=== PATIENT | female | born 1930 | race African-American/Black ===

== ENCOUNTER → 2018-05-24 10:17 | Outpatient (CLI) | payer MEDICARE, MEDICAID ==
[2013-09-19 11:01] VITALS: BMI 31.1
[~2018-05-24 10:17] MED LIST: ALEVE220 MG PO; B-12 DOTS500 MCG PO; BENICAR40 MG PO; MOBIC7.5 MG PO; NORVASC5 MG PO; TRAVATAN Z2.5 ML EACH EYE; VOLTAREN100 GM TP
== END | disposition home or self-care (01) ==
LOC: D.LABREF 10:17
DX: M25.572 Pain in left ankle and joints of left foot (principal)

== ENCOUNTER → 2018-06-07 10:49 | Outpatient (CLI) | payer MEDICARE, MEDICAID ==
[2013-09-19 11:01] VITALS: BMI 31.1
[2018-06-07 17:47] LABS: EOSINOPHILS 7.5 % (0-7); HEMATOCRIT 36.9 % (36.0-48.0); HEMOGLOBIN 11.8 g/dL (12-16); IMMATURE GRANULOCYTES 0.3 % (0-5); LYMPHOCYTES 27.2 % (15-50); MCV 84.4 fL (80.0-100.0); MEAN PLATELET VOLUME 11.1 fL (7.4-10.4); MONOCYTES 10.1 % (2-11); NEUTROPHILS 53.9 % (40-80); PLATELET COUNT 305 10x3/uL (130-400); RBC 4.37 10x6/uL (4.00-5.40); RDW 15.7 % (11.5-14.5); WBC 7.7 10x3/uL (4.8-10.8)
[2018-06-07 18:42] LABS: ERYTHROCYTE SEDIMENTATION RATE 22 mm/hr (0-42)
== END | disposition home or self-care (01) ==
LOC: D.US 10:49
PROVIDERS: Nurse Practitioner Family
DX: R60.0 Localized edema (principal)

== ENCOUNTER → 2018-06-07 17:41 | Outpatient (CLI) | payer MEDICARE, MEDICAID ==
[2013-09-19 11:01] VITALS: BMI 31.1
== END | disposition home or self-care (01) ==
LOC: D.LABREF 17:41
DX: M25.572 Pain in left ankle and joints of left foot (principal)

== ENCOUNTER → 2018-06-17 07:52 | Outpatient (CLI) | payer MEDICARE, MEDICAID ==
[2013-09-19 11:01] VITALS: BMI 31.1
== END | disposition home or self-care (01) ==
LOC: D.MRI 07:52
DX: M25.572 Pain in left ankle and joints of left foot (principal)

== ENCOUNTER → 2018-08-08 08:38 | Outpatient (CLI) | payer MEDICARE, MEDICAID ==
[2013-09-19 11:01] VITALS: BMI 31.1
[~2018-08-08 08:38] MED LIST changes: +PLAVIX75 MG PO
== END | disposition home or self-care (01) ==
LOC: D.CT 08:30
DX: I70.293 Other atherosclerosis of native arteries of extremities, bilateral legs (principal)

== ENCOUNTER 2018-08-23 11:11 | Outpatient (CLI) | payer MEDICARE, MEDICAID ==
[~2018-08-23] VITALS: Ht 157.5 cm; Wt 67.7 kg
--- NOTE | ~2018-08-23 | HEMODYNAMI ---
PATIENT:HECTOR HAMPTON MEDICAL RECORD: [id number] : 34 LOCATION:[facility] ADMISSION DATE: 08/23/18 Generatedon:08/23/201815:49 Patient name: HECTOR HAMPTON Patient #: [id number] SSN: : 1930 Date of study: 08/23/2018 Page: Of Hemodynamic Procedure Report Patient Data Patient Demographics Procedure consent was obtained First Name: HECTOR Gender: Female Last Name: MEMO : 1930 [facility] Initial: DAYAMI Age: 87 year(s) Patient #: [id number] Race: Black Additional ID: [id number] Contact details [address]: [address] [place] [address] State: [place] City: [place] Zip code: [address] Past Medical History Allergies Allergen Reaction Date Comments Reported Sulfa drugs 08/23/2018 Admission Admission Data Admission Date: 08/23/2018 Admission Time: 11:11 Height (in.): 62 BSA: 1.69 (m2) Height (cm.): 157.48 BMI: 27.25 (kg/m2) Weight (lbs.): 149 Weight (kg.): 67.59 Procedure Procedure Types Cath Procedure Peripheral Cath Diagnostic Procedure Grain Thresher Peripheral Procedures Abd/Extremity Extremities Left Lower Ext Arterio Procedure Description Procedure Date Procedure Date: 08/23/2018 Procedure Start Time: 13:45 Procedure Staff Name Function Taz Juarez MD Performing Physician Patricia Kulkarni RT Movie Operator Elsa Gregory RN Nurse Jenniffer Rodriguez RN Nurse Sae Andrade RT Scrub Procedure Data Cath Procedure Fluoroscopy Diagnostic fluoroscopy Total fluoroscopy Time: time: 17.1 min 17.1 min Diagnostic fluoroscopy Total fluoroscopy dose: 433 dose: 433 mGy mGy Contrast Material Contrast Material Type Amount (ml) Isovue 300 80 Entry Location Entry Primary Successful Side Size Upsize Upsize Entry Closure Succes sful Closure Location (Fr) 1 (Fr) 2 (Fr) Remarks Device Remarks Femoral Right Mynx artery Aeronautical Test Engineer 6Fr/7Fr Diagnostic catheters Device Type Used For End Catheter Placement DIAGNOSTIC IMT 5Fr Catheter ([id number]) Procedure Medications Medication Administration Route Dosage Heparin Flush Bag added to field 3 bags (1000units/500ml NS) Lidocaine 1% added to field 20 Versed I.V. 1 mg Fentanyl I.V. 50 mcg Versed I.V. 1 mg Heparin Bolus 3000 units Nitroglycerin IC/IA I.C. 250 mcg Heparin Bolus I.V. 1000 units Fentanyl I.V. 50 mcg Nitroglycerin IC/IA 300 mcg Fentanyl I.V. 50 mcg Hemodynamics Rest BSA: 1.69 (m2) O2 Consumption: Estimated: 149.93 (ml/min) O2 Consumption indexed : Estimated:88.72 (ml/min/m) Heart Rate: 70 (bpm) Snapshots Pre Cath Intra NCS Post Cath Vital Signs Time Heart Resp SPO2 etCO2 NIBP (mmHg) Rhythm Pain Sedation Rate (ipm) (%) (mmHg) Status Level (bpm) 13:28:46 68 23 100 30.7 Measuring NSR 0 (11) 10(A) , No pain 13:29:12 69 23 100 22.4 208/111(176) NSR 0 (11) 10(A) , No pain 13:33:41 70 23 100 29.9 201/108(162) NSR 0 (11) 10(A) , No pain 13:38:11 65 17 100 34.4 202/102(171) NSR 0 (11) 10(A) , No pain 13:42:33 66 20 100 34.4 198/98(166) NSR 0 (11) 10(A) , No pain 13:46:51 67 20 100 23.2 199/103(160) NSR 0 (11) 8(A) , No pain 13:51:05 65 17 100 26.9 180/100(155) NSR 0 (11) 8(A) , No pain 13:55:15 63 18 100 29.2 191/98(155) NSR 0 (11) 8(A) , No pain 13:59:27 57 14 100 26.9 173/87(149) NSR 0 (11) 8(A) , No pain 14:03:35 60 28 99 0 122/77(98) NSR 0 (11) 8(A) , No pain 14:08:16 58 26 99 16.4 160/82(126) SB 0 (11) 8(A) , No pain 14:12:19 54 11 100 0 163/88(139) SB 0 (11) 8(A) , No pain 14:17:06 62 12 100 28.4 174/86(146) NSR 0 (11) 8(A) , No pain 14:21:14 59 13 100 17.9 149/85(125) SB 0 (11) 8(A) , No pain 14:25:57 57 14 99 13.4 163/93(132) SB 0 (11) 8(A) , No pain 14:30:00 53 13 99 30.7 164/91(134) SB 0 (11) 8(A) , No pain 14:34:04 52 13 99 32.2 172/86(150) SB 0 (11) 8(A) , No pain 14:38:53 53 13 100 31.4 180/91(154) SB 0 (11) 8(A) , No pain 14:43:01 54 14 100 31.4 182/89(155) SB 0 (11) 8(A) , No pain 14:47:09 52 13 100 31.4 179/93(153) SB 0 (11) 8(A) , No pain 14:51:14 51 14 100 29.1 185/91(159) SB 0 (11) 8(A) , No pain 14:55:22 51 14 100 30.6 185/97(156) SB 0 (11) 8(A) , No pain 14:59:28 52 15 100 30.6 193/99(170) SB 0 (11) 8(A) , No pain 15:03:38 52 13 100 28.4 158/82(126) SB 0 (11) 8(A) , No pain 15:07:40 51 11 99 29.1 170/91(112) SB 0 (11) 8(A) , No pain 15:12:18 50 16 100 30.6 176/91(123) SB 0 (11) 8(A) , No pain 15:16:24 50 12 100 31.4 184/101(171) SB 0 (11) 8(A) , No pain 15:20:32 53 12 100 26.1 183/93(148) SB 0 (11) 8(A) , No pain 15:24:40 52 14 96 32.9 194/101(171) SB 0 (11) 8(A) , No pain 15:29:22 57 15 98 40.4 195/95(153) SB 0 (11) 8(A) , No pain 15:33:30 57 16 97 36.6 194/97(161) SB 0 (11) 8(A) , No pain 15:38:17 32.2 189/100(147) SB 0 (11) 8(A) , No pain 15:42:43 31.4 181/96(146) SB 0 (11) 8(A) , No pain 15:47:07 31.4 181/96(138) SB 0 (11) 8(A) , No pain 15:49:14 34.4 180/92(155) SB 0 (11) 8(A) , No pain Medications Time Medication Route Dose Verified Delivered Reason No emilia Effectiveness by by 13:46:00 Heparin Flush added 3 bags Taz Mcghee used for Bag to Ann Juarez procedure (1000units/500ml field MD MAO NS) 13:46:12 Lidocaine 1% added 20ml vial Taz Mcghee used for to Ann Juarez procedure field MD MAO 13:46:23 Versed I.V. 1 mg Taz Hunter for sedation Mostly Ann Gregory RN sleeping @ 14:52:42 13:46:32 Fentanyl I.V. 50 mcg Taz Hunter for sedation Mostly Ann Gregory RN sleeping @ 14:52:39 13:55:01 Versed I.V. 1 mg Taz Hunter for sedation Dozing Ann Gregory RN intermittently MD @ 14:52:47 13:55:13 Fentanyl I.V. 50 mcg Taz Hunter for sedation Ann Gregory RN, MD 14:15:54 Heparin Bolus 3000units Taz Abad for Ann Rodriguez RN anticoagulation 14:20:03 Nitroglycerin I.C. 250 mcg Taz Mcghee used for IC/IA Ann Juarez procedure MD MAO 14:59:29 Heparin Bolus I.V. 1000 Taz Abad for units Ann Rodriguez RN anticoagulation 15:00:39 Fentanyl I.V. 50 mcg Taz Abad for sedation Ann Rodriguez RN, MD 15:01:53 Nitroglycerin 300 mcg Taz Mcghee used for IC/IA Ann Juarez procedure MD MAO Procedure Log Time Note :30 Time tracking: Regular hours (M-F 7:00 - 5:00) 13:09:46 Plan of Care:Hemodynamics will remain stable., Cardiac rhythm will remain stable., Comfort level will be maintained., Respiratory function will remain adequate., Patient/ family verbilizes understanding of procedure., Procedure tolerated without complication., Recovers from procedure without complications.. 13:09:54 Patient received from Outpatients to IR Alert and oriented. Tansferred to table in Supine position. 13:09:58 Signed procedure consent form obtained from patient. 13:10:05 H&P Date Dictated: 08/23/2018 Within 30 days and on chart.. 13:10:08 Pre-procedure instructions explained to patient. 13:10:09 Pre-op teaching completed and patient verbalized understanding. 13:10:10 Family in waiting room. 13:10:13 Patient NPO since Midnight. 13:10:39 Patient allergic to Sulfa drugs 13:10:43 Is the patient allergic to Iodine/contrast media? No. 13:23:46 - 13:23:49 Patient diabetic? No. 13:24:43 ----Pre-sedation anethsthesia assessment.---- 13:25:06 Previous problem with sedation/anesthesia? No ? 13:25:10 Snore? No 13:25:13 Sleep apnea? No 13:25:15 Deviated septum? No 13:25:17 Opens mouth fully? Yes 13:25:21 Sticks out tongue? Yes 13:25:29 Airway obstruction? No ? 13:25:44 Dentures? Yes ? 13:25:52 Pre procedure: right dorsailis pedis pulse Doppler 13::56 Pre procedure: left dorsailis pedis pulse Doppler 13:26:00 Pre procedure: right posterior tibial pulse Doppler 13:26:06 Pre procedure: left posterior tibial pulse Doppler 13:26:21 IV patent on arrival in right forearm with D5/.45%NaCl at [facility]. 13::48 Right groin area was prepped with chlora-prep and draped in sterile fashion 13:26:51 - 13::56 ECG and BP/O2 sat monitors applied to patient. 13::57 Vital chart was started 13:: Baseline sample Acquired. ::06 Full Disclosure recording started 13::07 - 13:37:49 Physician arrived 13:45:01 --------ALL STOP TIME OUT------ 13:45:02 Final Timeout: patient, procedure, and site verified with staff and physician. All members of the team are in agreement. 13:45:15 Procedure started. 13:45:35 Local anesthetic to right femoral artery with Lidocaine 1% by Taz Juarez MD.INITIAL ACCESS ONLY 13:46:00 Heparin Flush Bag (1000units/500ml NS) 3 bags added to field was administered by Taz Juarez MD; used for procedure; :46:12 Lidocaine 1% 20ml vial added to field was administered by Taz gillette MD; used for procedure; :46:23 Versed 1 mg I.V. was administered by Elsa Gregory RN; for sedation; :46:32 Fentanyl 50 mcg I.V. was administered by Elsa Gregory RN; for sedation ; :55:01 Versed 1 mg I.V. was administered by Elsa Gregory RN; for sedation; :55:13 Fentanyl 50 mcg I.V. was administered by Elsa Gregory RN; for sedation ; 14:01:49 ROADRUNNER .035 260 glide wire ([id number]) opened to sterile field. 14:01:52 A DIAGNOSTIC IMT 5Fr Catheter ([id number]) was advanced over the wire an d used for . 14:03:20 Arterial access obtained using ultrasound guidance. 14:06:24 CHOICE PT Extra Support J 300cm guide wire ([id number]) opened to steril e field. 14:06:55 Angiography was performed. 14:08:06 CXI SUPPORT .035 135 CM STR catheter ([id number]) opened to sterile field. 14:08:07 BENTSON 145cm wire (T88535) opened to sterile field. 14:08:08 SHEATH 6FR Destination (RSR01) opened to sterile field. 14:08:09 Micropuncture VSI 4FR kit opened to sterile field. 14:08:09 SHEATH 5FR [place] (QED885) opened to sterile field. 14:08:10 RAPP 260 wire (O00350) opened to sterile field. 14:08:15 Use device set IR Diagnostic 14:08:16 Tegaderm 4 x 4 (1626W) opened to sterile field. 14:08:17 Sterile Angiographic Pack opened to sterile field. 14:08:18 Bag Decanter (2002S) opened to sterile field. 14:08:19 ACIST Manifold (32710) opened to sterile field. 14:08:19 ACIST Hand Control (38499) opened to sterile field. 14:08:20 ACIST Syringe (06556) opened to sterile field. 14:14:24 Patient Weight : 149 lbs 14:14:29 Patient Height : 62 inches 14:15:54 Heparin Bolus 3000units was administered by Jenniffer Rodriguez RN; for anticoagulation; 14:20:03 Nitroglycerin IC/IA 250 mcg I.C. was administered by Taz Juarez MD; used for procedure; 14:21:16 INFLATOR BasixTOUCH (FQ7944) opened to sterile field. 14:21:49 Inflate balloon Inflation number: 1 A CHOCOLATE 2.5 x 120 x 150 balloon ([id number]) was prepped and advanced across the Undefined1, then inflated. 14:24:00 CXI SUPPORT .018 150CM STR catheter ([id number]) opened to sterile field. 14:27:32 Inflate balloon Inflation number: 2 A [place] Plus 2 x 120 x 130 Balloo n ([id number]) was prepped and advanced across the Undefined1, then inflated. 14:52:39 Effectiveness of Fentanyl delivered @ 13:46:32 is: Mostly sleeping 14:52:42 Effectiveness of Versed delivered @ 13:46:23 is: Mostly sleeping 14:52:42 COPILOT Valve Control (6385689) opened to sterile field. 14:52:47 Effectiveness of Versed delivered @ 13:55:01 is: Dozing intermittently 14:59:29 Heparin Bolus 1000 units I.V. was administered by Jenniffer Rodriguez RN; for anticoagulation; 15:00:39 Fentanyl 50 mcg I.V. was administered by Jenniffer Rodriguez RN; for sedation; 15:00:55 Inflate balloon Inflation number: 3 A Evercross 3 x 6 x 135 Balloon ([id number]) was prepped and advanced across the Undefined1, then inflated. 15:01:53 Nitroglycerin IC/IA 300 mcg was administered by Taz Juarez MD; used for procedure; 15:15:49 SHEATH 6FR [place] (FZR749) opened to sterile field. 15:17:35 A sheath was inserted into the Right Femoral artery 15:17:35 Sheath removed intact; hemostasis achieved with Mynx Aeronautical Test Engineer 6Fr/7Fr to th e Right Femoral artery. 15:17:48 MYNX HEEL BUILDER 6FR/7FR (FV4645) opened to sterile field. 15:17:59 Procedure ended.(Physican Out) 15:18:14 Fluoroscopy time 17.10 minutes. 15:18:20 Fluoroscopy dose: 433 mGy 15:18:20 Flurop Dose total: 433 15:18:24 Contrast amount:Isovue 300 80ml. 15:18:27 Procedure and supply charges have been captured, reviewed, submitted an d are correct. 15:23:24 Report given to Outpatients. 15:23:36 Post Procedure Pulses reassessed and unchanged 15:49:52 Vital chart was stopped Intervention Summary Intervention Notes Time ActionType Lesion and Equipment Used Action# Pressure Duration Attributes 14:21:49 Inflate Undefined1 CHOCOLATE 2.5 x 1 0 00:00 balloon 120 x 150 balloon ([id number]) 14:27:32 Inflate Undefined1 [place] Plus 2 x 2 0 00:00 balloon 120 x 130 Balloon ([id number]) 15:00:55 Inflate Undefined1 Evercross 3 x 6 x 3 0 00:00 balloon 135 Balloon ([id number]) Device Usage Item Name Manufacture Quantity Catalog Number Hospital Part Current Minimal Lot# / Charge Number Stock Stock Serial# Code ROADRUNNER .035 Cook Medical 1 [id number] 343502 299152 934494 5 [id number] 260 glide wire (G57529) DIAGNOSTIC IMT [place] 1 [id number] 306950 661341 55689 5 [id number] 5Fr Catheter Scientific ([id number]) CHOICE PT Extra [place] 1 [id number] 064879 142449 101740 5 Support J 300cm Scientific guide wire ([id number]) CXI SUPPORT .035 Kontron 1 M13292 166518 196657 157496 5 [id number] 135 CM STR catheter (D97360) BENTSON 145cm Cook [facility] 1 U87676 657667 017925 5 wire (K14373) SHEATH 6FR Terumo 1 RSR01 034205 02864 727723 5 Destination (RSR01) Micropuncture VSI VSI VASCULAR 1 7266V 365700 017437 5 4FR kit SOLUTIONS SHEATH 5FR Terumo 1 FSO765 996730 789896 246080 40 Polk (ZEW238) RAPP 260 wire Cook [facility] 1 V35865 761639 06234 514474 5 [id number] (R97863) Tegaderm 4 x 4 3M 1 1626W 587616 157650 075713 5 (1626W) Sterile Cardinal 1 [id number] 505955 378219 5 Angiographic Pack Health Bag Decanter Microtek 1 2001S 849029 67894 163929 5 () Medical Inc. ACIST Manifold Acist 1 70254 118439 551069 679201 5 (91221) Medical Systems Inc ACIST Hand Acist 1 88892 895951 876777 155045 5 Control (50191) Medical Systems Inc ACIST Syringe Acist 1 76336 477569 318662 626203 20 (70526) Medical Systems Inc INFLATOR Merit 1 QL6707 716271 652516 939007 5 BasixTOUCH Medical (PX2073) CHOCOLATE 2.5 x Medtronic 1 [id number] 513556 146587 312875 5 [id number] 120 x 150 balloon O [id number] ([id number]) TW [id number] CXI SUPPORT .018 Cook Medical 1 D62863 103740 047738 088374 5 [id number] 150CM STR catheter (H79676) [place] Plus 2 x Medtronic 1 [id number] 623890 233330 358659 5 [id number] 120 x 130 Balloon ([id number]) COPILOT Valve Weir 1 3423156 788675 631872 946264 5 Control (2242514) Vascular Evercross 3 x 6 x Medtronic 1 [id number] 136830 023642 056477 5 [id number] 135 Balloon ([id number]) SHEATH 6FR Terumo 1 IUG731 734056 484468 908891 40 [place] (PIW460) MYNX HEEL BUILDER 6FR/7FR Access 1 CU2615 051966 437864 5 (CS3185) Closure Signature Audit [place] Stage Time Signature Unsigned Intra-Procedure 08/23/2018 Patricia Kulkarni 3:49:47 PM RT(R) [facility] [address] [facility] [place] [address]
[~2018-08-23 11:11] MED LIST changes: -PLAVIX75 MG PO
[2018-08-23 11:35] LABS: BASOPHILS 0.7 % (0-2); EOSINOPHILS 10.1 % (0-7); HEMATOCRIT 36.5 % (36.0-48.0); HEMOGLOBIN 11.8 g/dL (12-16); IMMATURE GRANULOCYTES 0.1 % (0-5); MCH 26.9 pg (26.0-34.0); MCHC 32.3 g/dL (31.0-37.0); MCV 83.1 fL (80.0-100.0); MEAN PLATELET VOLUME 10.1 fL (7.4-10.4); MONOCYTES 7.5 % (2-11); NEUTROPHILS 53.6 % (40-80); PLATELET COUNT 283 10x3/uL (130-400); RBC 4.39 10x6/uL (4.00-5.40); RDW 15.6 % (11.5-14.5); WBC 6.9 10x3/uL (4.8-10.8)
[2018-08-23 11:44] LABS: ANION GAP 13.3 mmol/L (8-16); CALCIUM 10.1 mg/dL (8.5-10.1); CREATININE - SERUM 1.1 mg/dL (0.6-1.3); POTASSIUM - SERUM 3.3 mmol/L (3.5-5.1)
[2018-08-23 11:48] LABS: APTT 28.7 SECONDS (22.8-39.4); INR 1.09 (0.85-1.17); PROTIME 13.7 SECONDS (11.6-15.0)
[2018-08-23 12:47] VITALS: BP 170/56; Ht 157.5 cm; Wt 67.7 kg
[2018-08-23 18:46] LABS: EOS BF 6 %; MACROPHAGES BF 4 %; NEUT - BF 66 %
[2018-08-23 19:38] LABS: PROTEIN - BODY FLUID 7.8 G/DL
[2018-08-23 20:26] VITALS: BP 158/85
[2018-08-24 01:01] VITALS: BP 120/70
[2018-08-24 04:48] VITALS: BP 123/64
[2018-08-24 08:23] VITALS: BP 140/89
[2018-08-24] MEDS ORDERED: PLAVIX75 MG PO (10:48)
== END 2018-08-24 11:57 | disposition home or self-care (01) ==
LOC: D.SP 11:11 → D.US 13:00 → D.SP 13:00 → D.M2 18:37 → D.SP 08-24 11:57
PROVIDERS: Radiology Diagnostic Radiology
DX: M25.561 Pain in right knee (principal); M25.461 Effusion, right knee; I70.239 Atherosclerosis of native arteries of right leg with ulceration of unspecified site; Z01.812 Encounter for preprocedural laboratory examination

== ENCOUNTER 2021-01-24 09:56 | Emergency (ER) | payer MEDICARE, MEDICAID ==
[~2021-01-24] VITALS: Ht 157.5 cm; Wt 70.9 kg
[~2021-01-24 09:56] MED LIST changes: +PLAVIX75 MG PO
[2021-01-24 10:01] VITALS: Ht 157.5 cm; Wt 70.9 kg
[2021-01-24 10:25] LABS: BASOPHILS 0.2 % (0-2); EOSINOPHILS 2.1 % (0-7); HEMATOCRIT 33.4 % (36.0-48.0); HEMOGLOBIN 10.2 g/dL (12-16); IMMATURE GRANULOCYTES 0.4 % (0-5); LYMPHOCYTE ABS# 1.21 10x3/uL (1.18-3.74); LYMPHOCYTES 25.1 % (15-50); MCH 28.6 pg (26.0-34.0); MCHC 30.5 g/dL (31.0-37.0); MCV 93.6 fL (80.0-100.0); MEAN PLATELET VOLUME 11.5 fL (7.4-10.4); MONOCYTES 7.1 % (2-11); NEUTROPHIL ABS# 3.14 10x3/uL (1.56-6.13); NEUTROPHILS 65.1 % (40-80); PLATELET COUNT 242 10x3/uL (130-400); RBC 3.57 10x6/uL (4.00-5.40); RDW 16.7 % (11.5-14.5); WBC 4.8 10x3/uL (4.8-10.8)
[2021-01-24 10:44] LABS: INR 1.14 (0.85-1.17); PROTIME 13.5 SECONDS (11.6-15.0)
[2021-01-24 10:45] LABS: APTT 36.2 SECONDS (22.8-39.4)
[2021-01-24 10:47] LABS: CALC OSMOLALITY 295 mosm/kg (275-300); CALCIUM 9.4 mg/dL (8.5-10.1); CARBON DIOXIDE 31.4 mmol/L (21.0-32.0); CHLORIDE - SERUM 107 mmol/L (98-107); CREATININE - SERUM 1.5 mg/dL (0.6-1.3); GLUCOSE 110 mg/dL (74-106); SODIUM 146 mmol/L (136-145); UREA NITROGEN 24 mg/dL (7-18); eGFR NON AFRICAN AMERICAN 35 mL/min (90-120)
[2021-01-24 11:02] LABS: ALBUMIN 3.4 g/dL (3.4-5.0); ALKALINE PHOSPHATASE 204 U/L (30-120); ALT (SGPT) 29 U/L (10-68); BILIRUBIN - TOTAL 0.26 mg/dL (0.2-1.3); CKMB 3.5 U/L (0.0-3.6); CREATINE KINASE 92 UL (21-215); PROTEIN - SERUM 7.5 g/dL (6.4-8.2); TROPONIN-I < 0.017 ng/mL (0.000-0.060)
[2021-01-24 13:16] VITALS: BP 164/85
== END 2021-01-24 15:23 | disposition home or self-care (01) ==
LOC: D.ER 09:56
PROVIDERS: Emergency Medicine
DX: N64.4 Mastodynia (principal); R07.81 Pleurodynia; D64.9 Anemia, unspecified; N18.9 Chronic kidney disease, unspecified; K80.20 Calculus of gallbladder without cholecystitis without obstruction; I12.9 Hypertensive chronic kidney disease with stage 1 through stage 4 chronic kidney disease, or unspecified chronic kidney disease; R07.89 Other chest pain

== ENCOUNTER 2021-02-03 12:47 | Inpatient (IN) | payer MEDICARE, MEDICAID ==
[~2021-02-03] VITALS: Ht 157.5 cm; Wt 69.5 kg
--- NOTE | 2021-02-03 13:54 | NUR ---
URINE SAMPLE COLLECTED ET SENT TO LAB AT THIS TIME.
[2021-02-03 14:24] LABS: BASOPHILS 0.2 % (0-2); EOSINOPHILS 1.2 % (0-7); HEMATOCRIT 30.5 % (36.0-48.0); HEMOGLOBIN 9.6 g/dL (12-16); IMMATURE GRANULOCYTES 0.4 % (0-5); LYMPHOCYTE ABS# 1.37 10x3/uL (1.18-3.74); MCH 28.2 pg (26.0-34.0); MCHC 31.5 g/dL (31.0-37.0); MCV 89.4 fL (80.0-100.0); MEAN PLATELET VOLUME 11.3 fL (7.4-10.4); MONOCYTES 5.6 % (2-11); NEUTROPHIL ABS# 9.21 10x3/uL (1.56-6.13); NEUTROPHILS 80.6 % (40-80); PLATELET COUNT 246 10x3/uL (130-400); RBC 3.41 10x6/uL (4.00-5.40); RDW 16.6 % (11.5-14.5); WBC 11.4 10x3/uL (4.8-10.8)
[2021-02-03 14:35] LABS: APTT 47.6 SECONDS (22.8-39.4); INR 1.23 (0.85-1.17); PROTIME 14.4 SECONDS (11.6-15.0)
[2021-02-03 14:39] LABS: CALC OSMOLALITY 291 mosm/kg (275-300); CALCIUM 8.6 mg/dL (8.5-10.1); CARBON DIOXIDE 23.6 mmol/L (21.0-32.0); CHLORIDE - SERUM 106 mmol/L (98-107); CREATININE - SERUM 2.3 mg/dL (0.6-1.3); GLUCOSE 106 mg/dL (74-106); POTASSIUM - SERUM 4.6 mmol/L (3.5-5.1); SODIUM 141 mmol/L (136-145); UREA NITROGEN 42 mg/dL (7-18); eGFR NON AFRICAN AMERICAN 21 mL/min (90-120)
[2021-02-03 14:40] LABS: BILIRUBIN NEGATIVE (NEGATIVE); KETONE NEGATIVE (NEGATIVE); NITRITE POSITIVE (NEGATIVE); UROBILINOGEN NORMAL mg/dL (< 2)
[2021-02-03 14:42] LABS: BACTERIA MANY HPF (NONE SEEN); SQUAMOUS EPITHELIAL 0-5 HPF (0-4)
[2021-02-03 14:46] LABS: ALBUMIN 2.6 g/dL (3.4-5.0); ALKALINE PHOSPHATASE 170 U/L (30-120); ALT (SGPT) 19 U/L (10-68); BILIRUBIN - TOTAL 0.24 mg/dL (0.2-1.3); CKMB 3.1 U/L (0.0-3.6); CREATINE KINASE 39 UL (21-215); MAGNESIUM - SERUM 1.7 mg/dL (1.8-2.4); PROTEIN - SERUM 6.9 g/dL (6.4-8.2)
[2021-02-03 14:52] LABS: TROPONIN-I < 0.017 ng/mL (0.000-0.060)
[2021-02-03 18:13] VITALS: BP 97/56; BMI 28.0
--- NOTE | 2021-02-03 19:30 | NUR ---
DR DESOUZA AT BED SIDE TO SEE PT.
[2021-02-03 19:46] LABS: CKMB 2.9 U/L (0.0-3.6); CREATINE KINASE 44 UL (21-215); TROPONIN-I < 0.017 ng/mL (0.000-0.060)
[2021-02-03 19:55] VITALS: Ht 157.5 cm; Wt 69.5 kg
[2021-02-03 20:00] VITALS: BP 126/72
[2021-02-03] MEDS ORDERED: LEVOXYL50 MCG PO (20:05)
[2021-02-03] MEDS ORDERED: FAMVIR500 MG PO (20:06)
[2021-02-03] MEDS ORDERED: REMERON15 MG PO (20:07)
[2021-02-03] MEDS ORDERED: PROTONIX40 MG PO (20:07)
[2021-02-03] MEDS ORDERED: ZYLOPRIM100 MG PO (20:08)
[2021-02-03] MEDS ORDERED: ZOLOFT25 MG PO (20:08)
[2021-02-03] MEDS ORDERED: KLOR-CON M2020 MEQ PO (20:08)
[2021-02-03] MEDS ORDERED: MICARDIS HCT 81 EACH PO (20:09)
[2021-02-03] MEDS ORDERED: COMBIGAN OPHT DR5 ML EACH EYE (20:09)
--- NOTE | 2021-02-04 02:24 | NUR ---
RESTIGN WITH EYES CLOSED, RESPERATIONS EVEN, NO S/S DISTRESS NOTED.
[2021-02-04 02:26] LABS: CKMB 3.1 U/L (0.0-3.6); CREATINE KINASE 45 UL (21-215); TROPONIN-I < 0.017 ng/mL (0.000-0.060)
[2021-02-04 04:00] VITALS: BP 145/84
--- NOTE | 2021-02-04 05:07 | NUR ---
I have reviewed this patient and I concur with the Shift Assessment completed by the Licensed Practical Nurse today this shift.
[2021-02-04 07:27] LABS: CKMB 2.9 U/L (0.0-3.6); CREATINE KINASE 34 UL (21-215)
[2021-02-04 07:30] LABS: TROPONIN-I < 0.017 ng/mL (0.000-0.060)
[2021-02-04 08:07] LABS: ANION GAP 16.2 mmol/L (8-16); CALCIUM 8.9 mg/dL (8.5-10.1); CARBON DIOXIDE 22.6 mmol/L (21.0-32.0); POTASSIUM - SERUM 4.8 mmol/L (3.5-5.1)
[2021-02-04 08:57] VITALS: BP 131/87
[2021-02-04 12:38] VITALS: BP 91/59
[2021-02-04 15:42] VITALS: BP 94/57
--- NOTE | 2021-02-04 19:45 | NUR ---
ASSESSMENT COMPLETE. PT A&O, RESPERATIONS EVEN ON RA. IV TO RIGHT WRIST WITH NS INFUSING AT 75 CC/HR. PT DENIES PAIN OR NEEDS, BED LOW, CL IN REACH.
[2021-02-04 20:00] VITALS: BP 110/83
[2021-02-05 00:06] VITALS: BP 123/81
--- NOTE | 2021-02-05 03:12 | NUR ---
RESTING WITH EYES CLOSED, RESPERATIONS EVEN, NO S/S DISTRESS NOTED.
[2021-02-05 04:00] VITALS: BP 122/79
--- NOTE | 2021-02-05 04:23 | NUR ---
I have reviewed this patient and I concur with the Shift Assessment completed by the Licensed Practical Nurse today this shift.
[2021-02-05 07:26] LABS: BASOPHILS 0.1 % (0-2); EOSINOPHILS 0.8 % (0-7); HEMATOCRIT 29.2 % (36.0-48.0); HEMOGLOBIN 9.2 g/dL (12-16); IMMATURE GRANULOCYTES 0.4 % (0-5); LYMPHOCYTE ABS# 1.53 10x3/uL (1.18-3.74); LYMPHOCYTES 15.1 % (15-50); MCH 28.5 pg (26.0-34.0); MCHC 31.5 g/dL (31.0-37.0); MCV 90.4 fL (80.0-100.0); MEAN PLATELET VOLUME 11.8 fL (7.4-10.4); MONOCYTES 4.4 % (2-11); NEUTROPHIL ABS# 8.01 10x3/uL (1.56-6.13); NEUTROPHILS 79.2 % (40-80); PLATELET COUNT 295 10x3/uL (130-400); RBC 3.23 10x6/uL (4.00-5.40); RDW 16.8 % (11.5-14.5); WBC 10.1 10x3/uL (4.8-10.8)
[2021-02-05 07:40] LABS: ANION GAP 16.2 mmol/L (8-16); CALCIUM 9.1 mg/dL (8.5-10.1); CARBON DIOXIDE 22.6 mmol/L (21.0-32.0); CREATININE - SERUM 1.9 mg/dL (0.6-1.3)
[2021-02-05 07:42] LABS: POTASSIUM - SERUM 3.8 mmol/L (3.5-5.1)
[2021-02-05 08:04] VITALS: BP 124/86
[2021-02-05 11:47] VITALS: BP 119/74
[2021-02-05 20:55] VITALS: BP 146/86
[2021-02-06 04:27] VITALS: BP 116/77
[2021-02-06 06:19] LABS: BASOPHILS 0.2 % (0-2); CALCIUM 8.8 mg/dL (8.5-10.1); CARBON DIOXIDE 24.9 mmol/L (21.0-32.0); CREATININE - SERUM 1.8 mg/dL (0.6-1.3); EOSINOPHILS 4.1 % (0-7); HEMATOCRIT 27.1 % (36.0-48.0); HEMOGLOBIN 8.4 g/dL (12-16); LYMPHOCYTE ABS# 1.32 10x3/uL (1.18-3.74); LYMPHOCYTES 22.3 % (15-50); MCH 27.9 pg (26.0-34.0); MEAN PLATELET VOLUME 11.3 fL (7.4-10.4); MONOCYTES 4.9 % (2-11); NEUTROPHIL ABS# 3.99 10x3/uL (1.56-6.13); NEUTROPHILS 67.5 % (40-80); PLATELET COUNT 262 10x3/uL (130-400); POTASSIUM - SERUM 3.9 mmol/L (3.5-5.1); RBC 3.01 10x6/uL (4.00-5.40); RDW 16.9 % (11.5-14.5)
[2021-02-06 06:21] LABS: WBC 5.9 10x3/uL (4.8-10.8)
[2021-02-06] MEDS ORDERED: LOPRESSOR25 MG PO (07:28)
[2021-02-06] MEDS ORDERED: ELIQUIS2.5 MG PO (07:28)
[2021-02-06] MEDS ORDERED: LEVOFLOXACIN500 MG PO (07:34)
[2021-02-06 09:36] VITALS: BP 149/78
--- NOTE | 2021-02-06 09:47 | MORECARE ---
CASE MANAGEMENT DISCHARGE SUMMARY PATIENT: HECTOR HAMPTON UNIT: [id number] ADM DATE: 02/03/21 AGE: 89 : 32 SEX: F ROOM/BED: D.8712 AUTHOR: ALEYDA WATTS PHYSICIAN: REFERRING PHYSICIAN: MARIA DESOUZA MD DATE OF SERVICE: 02/06/21 Case Management Discharge Planning Summary COMMENTS ENTERED DATE: 02/06/21 9:43 CT COMMENT TYPE: Discharge Planning REVIEWER: Zhang Penny DC PLAN: Home with [facility] ANTICIPATED DC NEEDS:None CM met with patient to complete initial dc planning assessment. CM educated patient on the CM role and verbal consent given by patient to complete assessment. CM verified patient's address, phone number, and emergency contact phone numbers. Patient lives at the [facility]. She states she has no stairs. Patient currently has Home Health Services and wishes to resume at discharge. LATONIA form signed by patient for resumption of [facility]. Signed form placed in chart and signed form given to patient. I called [facility] and spoke with Jodi. DC order/meds faxed. At discharge patient plans to return and feels this is a safe discharge. Patient denied further known discharge needs at this time. . Transportation provider at discharge will be "Anne-Marie". CM will continue to follow and will assist as needed with dc plans/needs. DCP REVIEW SUMMARY ANTICIPATED D/C DATE: EXPECTED LOS : CASE STATUS: DCP Initiated INITIAL REVIEW: 02/06/2021 INITIAL REVIEWER: Zhang Penny FINAL DISCHARGE DISPOSITION: : FINAL REVIEWER: FINAL REVIEW DATE: DCP Focus Questions & Answers DCP Evaluation QUESTION: ANSWER Patient and/or caregiver agree upon recommended discharge plan? : Yes Family / Caregiver's ability to cope with chronic illness: : a. Adequate (ability to meet patient's medical needs, ensures patient attends medical appts.) Patient's current cognitive status: : *Oriented to person, place, situation, time and present Patient's ability to cope with chronic illness : d. No chronic illness Patient gives permission to discuss discharge plans with: (name, relationship and number) : BAUTISTA Reed [phone] ZHANG [phone] Does the patient have the ability to pay for or attain post discharge needs / services? : Yes Functional screen assessment: : No issues identified Physical Status: : Partial care dependence Physical Status: : Mobility impaired Equipment needed for post hospitalization: : None Is there a likelihood that the patient will require additional services to return to the preadmission environment? : No Living Arrangements: : Home Alone with Support Partial Dependence, assistance required for: : Ambulation / Mobility Results of this evaluation have been discussed with: : Patient Patient with capacity for self-care or can be cared for in same environment as prior to hospitalization? : Yes Living arrangements comments: : [place] Baseline cognitive status: : *Oriented to person, place, situation, time and present Physical environment modification needed / anticipated for discharge: : No Preadmission facility can/cannot provide post hospital level of care needs: : Can - at same level of care as preadmission Medication Management: : Patient states can afford medications [facility] : [facility] Does Patient have transportation to get home and to follow-up medical appointments when discharged from the hospital? : Yes Would patient like to participate in any Care Coordination programs (if applicable): : Not applicable Does the patient have electricity at home? : Yes Does the patient have running water in their house? : Yes Equipment in use: : Wheelchair Equipment in use: : Walker - Standard Equipment in use: : Walker - Rolling Equipment in use: : Shower Chair Equipment in use: : Other Equipment in use: : Cane - Single Leg Other Equipment comments: : Grab bars in bathroom Mental health screen: : No mental health history Resources / Services in place: : Home health Contact information for resources in use: : Nancy [facility] - [phone] [facility] Re-evaluation QUESTION: ANSWER Would patient like to participate in any Care Coordination programs (if applicable): : Not applicable PATIENT: HECTOR HAMPTON ENCOUNTER: [id number] MEDICAL RECORD#: [id number] ADMISSION DATE: 02/03/2021 DISCHARGE DATE: ATTENDING MD: MARIA MARTINEZ : AGE: 89 MARITAL STATUS: S DC PLAN ID: [id number] FACILITY: [facility] PRINTED ON: 02/06/21 9:47 CT All edits/amendments must be made on the electronic document DICTATION DATE: 02/06/21946 AUTO COLLISION REPAIR INSTRUCTOR: PATRIC 02/06/21946 RPT#: [id number] DC DATE: STATUS: ADM IN [facility] [address] [place] [address] END OF REPORT
--- NOTE | 2021-02-06 10:19 | NUR ---
PT STATES SHE FEELS GOOD AND READY TO GO HOME. LUNGS CLEAR. HELPED PATIENT TO BSC WITH MINIMAL ASSIST. DC ORDERS ALREADY IN. AWAITING RIDE.
--- NOTE | 2021-02-06 13:23 | NUR ---
DISCHARGE INSTRUCTIONS PROVIDED TO PATIENT AND PATIENTS DAUGHTER. DAUGHTER VERVALIZED UNDERSTANDING. PATIENT ESCORTED TO VEHICLE VIA WHEELCHAIR WITH BELONGINGS.
--- NOTE | 2021-02-07 20:06 | MORECARE ---
CASE MANAGEMENT DISCHARGE SUMMARY PATIENT: HECTOR HAMPTON UNIT: [id number] ADM DATE: 02/03/21 AGE: 89 : 32 SEX: F ROOM/BED: D.8942 AUTHOR: MAC,DOC PHYSICIAN: REFERRING PHYSICIAN: MARIA DESOUZA MD DATE OF SERVICE: 02/07/21 Case Management Discharge Planning Summary COMMENTS ENTERED DATE: 02/06/21 9:43 CT COMMENT TYPE: Discharge Planning REVIEWER: Zhang Penny DC PLAN: Home with [facility] ANTICIPATED DC NEEDS:None CM met with patient to complete initial dc planning assessment. CM educated patient on the CM role and verbal consent given by patient to complete assessment. CM verified patient's address, phone number, and emergency contact phone numbers. Patient lives at the [facility]. She states she has no stairs. Patient currently has Home Health Services and wishes to resume at discharge. LATONIA form signed by patient for resumption of [facility]. Signed form placed in chart and signed form given to patient. I called [facility] and spoke with Jodi. DC order/meds faxed. At discharge patient plans to return and feels this is a safe discharge. Patient denied further known discharge needs at this time. . Transportation provider at discharge will be "Anne-Marie". CM will continue to follow and will assist as needed with dc plans/needs. DCP REVIEW SUMMARY ANTICIPATED D/C DATE: EXPECTED LOS : CASE STATUS: DCP Initiated INITIAL REVIEW: 02/06/2021 INITIAL REVIEWER: Zhang Penny FINAL DISCHARGE DISPOSITION: : FINAL REVIEWER: FINAL REVIEW DATE: DCP Focus Questions & Answers DCP Evaluation QUESTION: ANSWER Patient and/or caregiver agree upon recommended discharge plan? : Yes Patient's current cognitive status: : *Oriented to person, place, situation, time and present Patient's ability to cope with chronic illness : d. No chronic illness Patient gives permission to discuss discharge plans with: (name, relationship and number) : BAUTISTA eRed [phone] ZHANG [phone] Family / Caregiver's ability to cope with chronic illness: : a. Adequate (ability to meet patient's medical needs, ensures patient attends medical appts.) Does the patient have the ability to pay for or attain post discharge needs / services? : Yes Functional screen assessment: : No issues identified Physical Status: : Mobility impaired Physical Status: : Partial care dependence Equipment needed for post hospitalization: : None Is there a likelihood that the patient will require additional services to return to the preadmission environment? : No Living Arrangements: : Home Alone with Support Partial Dependence, assistance required for: : Ambulation / Mobility Results of this evaluation have been discussed with: : Patient Patient with capacity for self-care or can be cared for in same environment as prior to hospitalization? : Yes Baseline cognitive status: : *Oriented to person, place, situation, time and present Living arrangements comments: : [facility] Physical environment modification needed / anticipated for discharge: : No Preadmission facility can/cannot provide post hospital level of care needs: : Can - at same level of care as preadmission Medication Management: : Patient states can afford medications [facility] Does Patient have transportation to get home and to follow-up medical appointments when discharged from the hospital? : Yes Would patient like to participate in any Care Coordination programs (if applicable): : Not applicable Does the patient have electricity at home? : Yes Does the patient have running water in their house? : Yes Equipment in use: : Cane - Single Leg Equipment in use: : Other Equipment in use: : Shower Chair Equipment in use: : Walker - Rolling Equipment in use: : Walker - Standard Equipment in use: : Wheelchair Other Equipment comments: : Grab bars in bathroom Mental health screen: : No mental health history Resources / Services in place: : Home health Contact information for resources in use: : [address] [facility] - [phone] [facility] Re-evaluation QUESTION: ANSWER Would patient like to participate in any Care Coordination programs (if applicable): : Not applicable PATIENT: HECTOR HMAPTON ENCOUNTER: [id number] MEDICAL RECORD#: [id number] ADMISSION DATE: 02/03/2021 DISCHARGE DATE: 02/06/2021 ATTENDING MD: MARIA MARTINEZ : AGE: 89 MARITAL STATUS: S DC PLAN ID: [id number] FACILITY: [facility] PRINTED ON: 02/07/21 20:06 CT All edits/amendments must be made on the electronic document DICTATION DATE: 02/07/212005 RETAIL CLIENT MANAGER: PATRIC 02/07/212005 RPT#: [id number] DC DATE:02/06/21 STATUS: DIS IN [facility] [address] [place] [address] END OF REPORT
--- NOTE | 2021-02-10 11:07 | MORECARE ---
CASE MANAGEMENT DISCHARGE SUMMARY PATIENT: HECTOR HAMPTON UNIT: [id number] ADM DATE: 02/03/21 AGE: 89 : 32 SEX: F ROOM/BED: D.7992 AUTHOR: MACDOC PHYSICIAN: REFERRING PHYSICIAN: MARIA DESOUZA MD DATE OF SERVICE: 02/10/21 Case Management Discharge Planning Summary COMMENTS ENTERED DATE: 02/06/21 9:43 CT COMMENT TYPE: Discharge Planning REVIEWER: Zhang Penny DC PLAN: Home with [facility] ANTICIPATED DC NEEDS:None CM met with patient to complete initial dc planning assessment. CM educated patient on the CM role and verbal consent given by patient to complete assessment. CM verified patient's address, phone number, and emergency contact phone numbers. Patient lives at the [facility]. She states she has no stairs. Patient currently has Home Health Services and wishes to resume at discharge. LATONIA form signed by patient for resumption of [facility]. Signed form placed in chart and signed form given to patient. I called [facility] and spoke with Jodi. DC order/meds faxed. At discharge patient plans to return and feels this is a safe discharge. Patient denied further known discharge needs at this time. . Transportation provider at discharge will be "Anne-Marie". CM will continue to follow and will assist as needed with dc plans/needs. DCP REVIEW SUMMARY ANTICIPATED D/C DATE: EXPECTED LOS : CASE STATUS: DCP Initiated INITIAL REVIEW: 02/06/2021 INITIAL REVIEWER: Zhang Penny FINAL DISCHARGE DISPOSITION: : FINAL REVIEWER: FINAL REVIEW DATE: DCP Focus Questions & Answers DCP Evaluation QUESTION: ANSWER Patient and/or caregiver agree upon recommended discharge plan? : Yes Family / Caregiver's ability to cope with chronic illness: : a. Adequate (ability to meet patient's medical needs, ensures patient attends medical appts.) Patient's current cognitive status: : *Oriented to person, place, situation, time and present Patient's ability to cope with chronic illness : d. No chronic illness Patient gives permission to discuss discharge plans with: (name, relationship and number) : BAUTISTA Reed [phone] ZHANG [phone] Does the patient have the ability to pay for or attain post discharge needs / services? : Yes Functional screen assessment: : No issues identified Physical Status: : Partial care dependence Physical Status: : Mobility impaired Equipment needed for post hospitalization: : None Is there a likelihood that the patient will require additional services to return to the preadmission environment? : No Living Arrangements: : Home Alone with Support Partial Dependence, assistance required for: : Ambulation / Mobility Results of this evaluation have been discussed with: : Patient Patient with capacity for self-care or can be cared for in same environment as prior to hospitalization? : Yes Living arrangements comments: : [facility] Baseline cognitive status: : *Oriented to person, place, situation, time and present Physical environment modification needed / anticipated for discharge: : No Preadmission facility can/cannot provide post hospital level of care needs: : Can - at same level of care as preadmission Medication Management: : Patient states can afford medications [facility] Does Patient have transportation to get home and to follow-up medical appointments when discharged from the hospital? : Yes Would patient like to participate in any Care Coordination programs (if applicable): : Not applicable Does the patient have electricity at home? : Yes Does the patient have running water in their house? : Yes Equipment in use: : Wheelchair Equipment in use: : Walker - Standard Equipment in use: : Walker - Rolling Equipment in use: : Shower Chair Equipment in use: : Other Equipment in use: : Cane - Single Leg Other Equipment comments: : Grab bars in bathroom Mental health screen: : No mental health history Resources / Services in place: : Home health Contact information for resources in use: : [address] [facility] - [phone] [facility] Re-evaluation QUESTION: ANSWER Would patient like to participate in any Care Coordination programs (if applicable): : Not applicable PATIENT: HECTOR HAMPTON ENCOUNTER: [id number] MEDICAL RECORD#: [id number] ADMISSION DATE: 02/03/2021 DISCHARGE DATE: 02/06/2021 ATTENDING MD: MARIA MARTINEZ : AGE: 89 MARITAL STATUS: S DC PLAN ID: [id number] FACILITY: [facility] PRINTED ON: 02/10/21 11:07 CT All edits/amendments must be made on the electronic document DICTATION DATE: 02/10/211106 DROSOPHERE OPERATOR: PATRIC 02/10/211106 RPT#: [id number] DC DATE:02/06/21 STATUS: DIS IN [facility] [address] [place] [address] END OF REPORT
== END 2021-02-06 13:24 | disposition home health service (06) | DRG 309 ==
LOC: D.ER 12:47 → D.M2 16:42
PROVIDERS: Emergency Medicine; ADMIT Family Medicine; ATTEND Family Medicine
DX: I48.91 Unspecified atrial fibrillation (principal); N39.0 Urinary tract infection, site not specified; N17.9 Acute kidney failure, unspecified; N18.9 Chronic kidney disease, unspecified; R00.1 Bradycardia, unspecified; B02.9 Zoster without complications; R55 Syncope and collapse; I12.9 Hypertensive chronic kidney disease with stage 1 through stage 4 chronic kidney disease, or unspecified chronic kidney disease; G89.29 Other chronic pain; M54.9 Dorsalgia, unspecified; H26.9 Unspecified cataract; D63.1 Anemia in chronic kidney disease; E86.0 Dehydration

== ENCOUNTER 2021-02-20 00:33 | Emergency (ER) | payer MEDICARE, MEDICAID ==
[2021-02-03 19:55] VITALS: Ht 157.5 cm; Wt 68.2 kg
[~2021-02-20] VITALS: Ht 157.5 cm; Wt 68.2 kg
[~2021-02-20 00:33] MED LIST changes: +COMBIGAN OPHT DR5 ML EACH EYE; +ELIQUIS2.5 MG PO; +FAMVIR500 MG PO; +KLOR-CON M2020 MEQ PO; +LEVOFLOXACIN500 MG PO; +LEVOXYL50 MCG PO; +LOPRESSOR25 MG PO; +MICARDIS HCT 81 EACH PO; +PROTONIX40 MG PO; +REMERON15 MG PO; +ZOLOFT25 MG PO; +ZYLOPRIM100 MG PO
[2021-02-20] MEDS ORDERED: NYSTATIN100000 UN4 PO (01:02)
[2021-02-20] MEDS ORDERED: TRIAMCINOLONE A60 M1 TOPICAL (01:02)
[2021-02-20] MEDS ORDERED: REMERON30 MG PO (01:02)
[2021-02-20] MEDS ORDERED: SYNTHROID50 MCG PO (01:03)
[2021-02-20] MEDS ORDERED: COMBIGAN OPHT DR5 ML EACH EYE (01:03)
[2021-02-20] MEDS ORDERED: ELIQUIS2.5 MG PO (01:03)
[2021-02-20] MEDS ORDERED: ZYLOPRIM100 MG PO (01:03)
[2021-02-20] MEDS ORDERED: METOPROLOL TART25 MG PO (01:04)
[2021-02-20] MEDS ORDERED: FERROUS SULFAT325 MG PO (01:04)
[2021-02-20] MEDS ORDERED: ZOLOFT25 MG PO (01:05)
[2021-02-20] MEDS ORDERED: PROTONIX40 MG PO (01:05)
[2021-02-20 01:18] LABS: BASOPHILS 0.2 % (0-2); EOSINOPHILS 5.4 % (0-7); HEMOGLOBIN 9.2 g/dL (12-16); IMMATURE GRANULOCYTES 0.8 % (0-5); LYMPHOCYTE ABS# 1.43 10x3/uL (1.18-3.74); LYMPHOCYTES 28.7 % (15-50); MCH 28.2 pg (26.0-34.0); MCHC 31.7 g/dL (31.0-37.0); MEAN PLATELET VOLUME 12.6 fL (7.4-10.4); MONOCYTES 5.6 % (2-11); NEUTROPHIL ABS# 2.95 10x3/uL (1.56-6.13); NEUTROPHILS 59.3 % (40-80); PLATELET COUNT 230 10x3/uL (130-400); RBC 3.26 10x6/uL (4.00-5.40); RDW 17.9 % (11.5-14.5)
[2021-02-20 01:26] LABS: CALC OSMOLALITY 304 mosm/kg (275-300); CALCIUM 9.8 mg/dL (8.5-10.1); CARBON DIOXIDE 26.7 mmol/L (21.0-32.0); CHLORIDE - SERUM 112 mmol/L (98-107); CREATININE - SERUM 1.7 mg/dL (0.6-1.3); GLUCOSE 93 mg/dL (74-106); POTASSIUM - SERUM 3.7 mmol/L (3.5-5.1); SODIUM 150 mmol/L (136-145); UREA NITROGEN 33 mg/dL (7-18); eGFR NON AFRICAN AMERICAN 30 mL/min (90-120)
[2021-02-20 01:28] LABS: APTT 56.1 SECONDS (22.8-39.4); INR 1.87 (0.85-1.17)
[2021-02-20] MEDS ORDERED: GABAPENTIN100 MG PO (01:32)
[2021-02-20 01:41] LABS: ALBUMIN 2.7 g/dL (3.4-5.0); ALKALINE PHOSPHATASE 178 U/L (30-120); ALT (SGPT) 27 U/L (10-68); BILIRUBIN - TOTAL 0.19 mg/dL (0.2-1.3); CKMB 2.1 U/L (0.0-3.6); CREATINE KINASE 38 UL (21-215); MAGNESIUM - SERUM 2.2 mg/dL (1.8-2.4); PROTEIN - SERUM 7.1 g/dL (6.4-8.2); TROPONIN-I < 0.017 ng/mL (0.000-0.060)
[2021-02-20 02:33] VITALS: BP 119/74
== END 2021-02-20 02:34 | disposition home or self-care (01) ==
LOC: D.ER 00:33
PROVIDERS: Emergency Medicine
DX: B02.9 Zoster without complications (principal); I10 Essential (primary) hypertension

== ENCOUNTER 2021-02-23 17:14 | Inpatient (IN) | payer MEDICARE, MEDICAID ==
[~2021-02-23] VITALS: Ht 157.5 cm; Wt 83.2 kg
[~2021-02-23 17:14] MED LIST changes: +FERROUS SULFAT325 MG PO; +GABAPENTIN100 MG PO; +METOPROLOL TART25 MG PO; +NYSTATIN100000 UN4 PO; +REMERON30 MG PO; +SYNTHROID50 MCG PO; +TRIAMCINOLONE A60 M1 TOPICAL
[2021-02-23 18:16] LABS: BASOPHILS 0 % (0-2); EOSINOPHILS 4.1 % (0-7); HEMATOCRIT 28.3 % (36.0-48.0); HEMOGLOBIN 8.9 g/dL (12-16); IMMATURE GRANULOCYTES 0.2 % (0-5); LYMPHOCYTE ABS# 1.11 10x3/uL (1.18-3.74); LYMPHOCYTES 27.1 % (15-50); MCH 28.1 pg (26.0-34.0); MCHC 31.4 g/dL (31.0-37.0); MCV 89.3 fL (80.0-100.0); MEAN PLATELET VOLUME 12.3 fL (7.4-10.4); MONOCYTES 7.8 % (2-11); NEUTROPHIL ABS# 2.49 10x3/uL (1.56-6.13); NEUTROPHILS 60.8 % (40-80); RBC 3.17 10x6/uL (4.00-5.40); RDW 18.3 % (11.5-14.5); WBC 4.1 10x3/uL (4.8-10.8)
[2021-02-23 18:17] LABS: PLATELET COUNT 178 10x3/uL (130-400)
[2021-02-23 18:26] LABS: CALC OSMOLALITY 305 mosm/kg (275-300); CALCIUM 9.7 mg/dL (8.5-10.1); CARBON DIOXIDE 26.2 mmol/L (21.0-32.0); CHLORIDE - SERUM 112 mmol/L (98-107); CREATININE - SERUM 2.1 mg/dL (0.6-1.3); GLUCOSE 91 mg/dL (74-106); POTASSIUM - SERUM 3.7 mmol/L (3.5-5.1); SODIUM 148 mmol/L (136-145); UREA NITROGEN 46 mg/dL (7-18); eGFR NON AFRICAN AMERICAN 23 mL/min (90-120)
[2021-02-23 18:35] LABS: ALBUMIN 2.5 g/dL (3.4-5.0); ALKALINE PHOSPHATASE 199 U/L (30-120); ALT (SGPT) 40 U/L (10-68); AMYLASE - SERUM 188 U/L (25-115); BILIRUBIN - TOTAL 0.23 mg/dL (0.2-1.3); PROTEIN - SERUM 6.9 g/dL (6.4-8.2)
[2021-02-23 18:45] LABS: LIPASE 2099 U/L (73-393); TROPONIN-I < 0.017 ng/mL (0.000-0.060)
--- NOTE | 2021-02-23 18:45 | NUR ---
URINE COLLECTED VIA IN AND OUT CATH.
[2021-02-23 19:31] LABS: BILIRUBIN NEGATIVE (NEGATIVE); KETONE NEGATIVE (NEGATIVE); NITRITE NEGATIVE (NEGATIVE); UROBILINOGEN NORMAL mg/dL (< 2)
[2021-02-23 20:14] VITALS: BP 125/76
[2021-02-23 21:20] VITALS: BP 108/78
--- NOTE | 2021-02-23 21:45 | NUR ---
RECEIVED TO ROOM. ALERT,ORIENTED.NO COMPLAINTS AT THIS TIME.IV TO LFA INTACT WIHTOUT REDNESS OR EDEMA NOTED. ORIENTED TO ROOM. CL LIGHT IN REACH
[2021-02-23 22:28] VITALS: BP 157/51
[2021-02-24 04:30] VITALS: BMI 28.0
[2021-02-24 09:33] VITALS: BP 149/77
[2021-02-24 09:53] LABS: BASOPHILS 0.3 % (0-2); HEMATOCRIT 27.7 % (36.0-48.0); HEMOGLOBIN 8.7 g/dL (12-16); IMMATURE GRANULOCYTES 0.7 % (0-5); LYMPHOCYTES 26.8 % (15-50); MCH 27.8 pg (26.0-34.0); MCHC 31.4 g/dL (31.0-37.0); MCV 88.5 fL (80.0-100.0); MEAN PLATELET VOLUME 13.1 fL (7.4-10.4); MONOCYTES 7.7 % (2-11); NEUTROPHIL ABS# 1.72 10x3/uL (1.56-6.13); NEUTROPHILS 57.5 % (40-80); PLATELET COUNT 174 10x3/uL (130-400); RBC 3.13 10x6/uL (4.00-5.40); RDW 18.5 % (11.5-14.5)
[2021-02-24 10:04] LABS: ALBUMIN 2.4 g/dL (3.4-5.0); ANION GAP 14.5 mmol/L (8-16); BILIRUBIN - TOTAL 0.2 mg/dL (0.2-1.3); CALCIUM 9.6 mg/dL (8.5-10.1); CARBON DIOXIDE 24.3 mmol/L (21.0-32.0); CREATININE - SERUM 1.8 mg/dL (0.6-1.3); POTASSIUM - SERUM 3.8 mmol/L (3.5-5.1); PROTEIN - SERUM 6.6 g/dL (6.4-8.2)
[2021-02-24 13:44] VITALS: Ht 157.5 cm; Wt 83.2 kg
[2021-02-24 13:56] VITALS: BP 126/92
[2021-02-24 17:05] VITALS: BP 99/67
[2021-02-24 20:00] VITALS: BP 126/83
[2021-02-24 22:45] VITALS: BP 94/68
--- NOTE | 2021-02-24 23:00 | NUR ---
HR DROPS DOWN TO 30s WHEN PT SLEEPING. LYLY PAGED AND NOTIFIED. DR GUZMAN, ORDERED FOR HOLD ON MORNING LOPRESSOR, NO OTHER ORDERS. CTM.
[2021-02-25] VITALS: BP 80/50
[2021-02-25 04:00] VITALS: BP 92/63
[2021-02-25 08:02] VITALS: BP 131/87
[2021-02-25 08:53] LABS: BASOPHILS 0 % (0-2); EOSINOPHILS 5.4 % (0-7); HEMATOCRIT 27.5 % (36.0-48.0); HEMOGLOBIN 8.7 g/dL (12-16); IMMATURE GRANULOCYTES 0.7 % (0-5); LYMPHOCYTE ABS# 0.67 10x3/uL (1.18-3.74); LYMPHOCYTES 15.7 % (15-50); MCH 27.9 pg (26.0-34.0); MCHC 31.6 g/dL (31.0-37.0); MCV 88.1 fL (80.0-100.0); MEAN PLATELET VOLUME 12.4 fL (7.4-10.4); MONOCYTES 8.2 % (2-11); NEUTROPHIL ABS# 2.98 10x3/uL (1.56-6.13); PLATELET COUNT 154 10x3/uL (130-400); RBC 3.12 10x6/uL (4.00-5.40); RDW 18.5 % (11.5-14.5)
[2021-02-25 08:57] LABS: WBC 4.3 10x3/uL (4.8-10.8)
[2021-02-25 09:22] LABS: ALBUMIN 2.3 g/dL (3.4-5.0); ANION GAP 12.7 mmol/L (8-16); BILIRUBIN - TOTAL 0.19 mg/dL (0.2-1.3); CALCIUM 8.7 mg/dL (8.5-10.1); CARBON DIOXIDE 24.9 mmol/L (21.0-32.0); CREATININE - SERUM 1.8 mg/dL (0.6-1.3); MAGNESIUM - SERUM 2.2 mg/dL (1.8-2.4); POTASSIUM - SERUM 3.6 mmol/L (3.5-5.1); PROTEIN - SERUM 5.7 g/dL (6.4-8.2)
[2021-02-25 13:19] VITALS: BP 131/87
[2021-02-25 17:07] VITALS: BP 131/87
--- NOTE | 2021-02-25 17:50 | NUR ---
CONCRETE PAVER CALLED TO INFORM THAT PT HR WAS DROPPING TO THE 20'S WITH SOME PAUSES, UPON ASSESSMENT PT IS SLEEPING WITH EQUAL UNLABORED RESPIRATIONS AND NO SIGNS OF DISTRESS
[2021-02-25 20:00] VITALS: BP 99/63
[2021-02-26] VITALS (39 sets, daily range): BP systolic 68–130; BP diastolic 41–87
--- NOTE | 2021-02-26 03:15 | NUR ---
EPIC AMBULATORY ANALYST REPORTS PTs MONITOR HAS BEEN LAGGING DOWN INTO THE 20s. PT EXTREMELY LETHARGIC, BUT ARROUSABLE. UNABLE TO STAY ARROUSED, THOUGH- QUICKLY DRIFTS BACK TO SLEEP . HEARTRATE LLUVIA BACK UP TO MID 40s WHEN WOKEN UP, BUT SOON PT FELL BACK TO SLEEP, HR RAPIDLY DROPPED BACK DOWN TO 20s. ICU BRINEYARD SUPERVISOR, ISAEL, AND VALVE TECHNICIAN, NICHELLE, CAME TO ASSESS PT. ICU NURSE SPOKE WITH DR HOWARD AND OBTAINED ORDER TO TRANSFER PT TO ICU. ATTEMPTED TO REACH PTs EMERGENCY CONTACTON WORK OR HOME PHONE, BUT UNSUCCESSFUL. PREPARING PT TO GO TO ROOM 2313. CPOC.
--- NOTE | 2021-02-26 03:37 | NUR ---
ATTEMPTED TO CONTACT PT'S SON ABOUT RECENT TRANSFER TO ICU. VOICEMAIL LEFT TO RETURN CALL.
[2021-02-26 05:35] LABS: BASOPHILS 0 % (0-2); HEMATOCRIT 26.9 % (36.0-48.0); HEMOGLOBIN 8.6 g/dL (12-16); IMMATURE GRANULOCYTES 0.3 % (0-5); LYMPHOCYTE ABS# 0.73 10x3/uL (1.18-3.74); LYMPHOCYTES 20.2 % (15-50); MCH 28.6 pg (26.0-34.0); MCV 89.4 fL (80.0-100.0); MEAN PLATELET VOLUME 11.8 fL (7.4-10.4); MONOCYTES 7.2 % (2-11); NEUTROPHIL ABS# 2.44 10x3/uL (1.56-6.13); NEUTROPHILS 67.3 % (40-80); PLATELET COUNT 137 10x3/uL (130-400); RBC 3.01 10x6/uL (4.00-5.40); RDW 18.6 % (11.5-14.5); WBC 3.6 10x3/uL (4.8-10.8)
[2021-02-26 06:40] LABS: ALBUMIN 2.1 g/dL (3.4-5.0); ANION GAP 14.3 mmol/L (8-16); BILIRUBIN - TOTAL 0.23 mg/dL (0.2-1.3); CALCIUM 8.1 mg/dL (8.5-10.1); CARBON DIOXIDE 23.4 mmol/L (21.0-32.0); CREATININE - SERUM 1.8 mg/dL (0.6-1.3); MAGNESIUM - SERUM 2.1 mg/dL (1.8-2.4); POTASSIUM - SERUM 3.7 mmol/L (3.5-5.1); PROTEIN - SERUM 5.7 g/dL (6.4-8.2)
[2021-02-26 11:19] LABS: HEMATOCRIT 27.1 % (36.0-48.0); HEMOGLOBIN 8.6 g/dL (12-16); MCH 28.4 pg (26.0-34.0); MCHC 31.7 g/dL (31.0-37.0); MCV 89.4 fL (80.0-100.0); MEAN PLATELET VOLUME 11.9 fL (7.4-10.4); RBC 3.03 10x6/uL (4.00-5.40); RDW 18.5 % (11.5-14.5); WBC 3.7 10x3/uL (4.8-10.8)
[2021-02-26 11:30] LABS: INR 1.62 (0.85-1.17); PROTIME 17.8 SECONDS (11.6-15.0)
[2021-02-26 11:31] LABS: APTT 64.5 SECONDS (22.8-39.4)
[2021-02-26 11:49] LABS: ANION GAP 13.8 mmol/L (8-16); CARBON DIOXIDE 23.8 mmol/L (21.0-32.0); CREATININE - SERUM 1.9 mg/dL (0.6-1.3); POTASSIUM - SERUM 3.6 mmol/L (3.5-5.1)
--- NOTE | 2021-02-26 12:27 | NUR ---
Nutrition follow-up: Pt now in ICU for bradycardia; placemaker placement today LapChole canceled for today Diet: regular with po intake ~75% average of meals Labs reviewed Wt: 153# Pt will be NPO for several meals before/after surgery RDN will follow-up: 02/28/21
--- NOTE | 2021-02-26 13:08 | NUR ---
NOTED SKIN LESIONS THAT LOOK LIKE OLD SCARS ON UPPER BODY, DR GRIFFITH NOTIFIED AND OBSERVEDYOANA.
--- NOTE | 2021-02-26 13:55 | NUR ---
RECEIVED FROM OR PER BED. EYES OPEN, SQUEEZES BILATERAL HANDS, WHEN HANDS HELD. NON VERBAL. RESTING COMFORTABLY NO DISTRESS. RESP DEEP AND REGULAR ON 10 L SIMPLET MASK. RIGHT ARM IN SLING, DRESSING RIGHT SHOULDER DRY AND INTACT. LEFT BUTTOCK 1CM SHEARING OPEN AREA NOTED. BRUISING NOTED LOWER MID ABD. SCALPED OVER AREAS NOTED ON RIGHT BREAST AND LEGS. IV LEFT FOREARM INFUSING 25 ML HOUR. NO REDNESS OR SWELLING NOTED.
--- NOTE | 2021-02-26 15:30 | NUR ---
dr. levi notified of low blood pressure orders received. dr. pereyra notified of low blood pressure and orders received.
--- NOTE | 2021-02-26 17:05 | NUR ---
wakes easily to stimulation. tries to talk. mummples. makes eye contact. levophed gtt at 0.7mcg/kg/min. monitor 100% pacer. feet warm bear hugger still on
--- NOTE | 2021-02-26 18:07 | NUR ---
MORE AWAKE STATES SHE IS HOT. BEAR HUGGER TURNED OFF. MCKAYLA SYNPHERINE AT 0.6 MCG/KG/MIN
--- NOTE | 2021-02-26 19:00 | NUR ---
RECEIVED BEDSIDE REPORT ON PATIENT AND ASSUMED CARE. PATIENT RESTING QUIETLY WITH EYES CLOSED, EASILY AROUSED BY VOICE, ALERT AND ORIENTED TO SELF, ASKED HOW I HAD GOTTEN INTO HER APARTMENT, REORIENTED TO BEING AT [facility], YEAR AND REASON FOR BEING IN THE HOSPITAL. IVS 20 GA TO LEFT FA INFUSING 1/2NS AT 100 ML/HR AND NEOSYNEPHEINE AT 0.3 MCG/MIN (6.3 ML/HR) WITH NO S/S OF INFILTRATION. IV 22 GA TO RIGHT AC, NSL, FLUSHES EASILY. RIGHT ARM IN SLING, PATIENT WITH RIGHT ARM ABOVE HEAD, REPOSITIONED IN SLING AND PLACED IN PROPER POSITION. INSTRUCTED ON NEED TO KEEP ARM IN SLING AND ON CHEST. SCD'S PLACED ON PATIENT. BBS - CLEAR DIMINISHED IN THE BASES, SPO2 - 99% ON 2 LPM O2 VIA NC. CM - PACED RHYTHM WITH A-FIB UNDERLYING RHYTHM. HEAD TO TOE ASSESSMENT COMPLETED.
--- NOTE | 2021-02-26 21:18 | NUR ---
PATIENT TURNED AND REPOSTIONED IN BED. EVENING MEDS WITH APPLE SAUCE, VSS.
--- NOTE | 2021-02-26 23:02 | NUR ---
PATIENT TURNED AND REPOSITIONED IN BED. MCKAYLA GTT WAS RESTARTED DUE TO SYSTOLIC BP LESS THAN 90, TITRATING.
[2021-02-27] VITALS (94 sets, daily range): BP systolic 70–138; BP diastolic 43–90
--- NOTE | 2021-02-27 01:07 | NUR ---
PATIENT TURNED AND REPOSITIONED IN BED. VSS. NO NEEDS AT THIS TIME.
--- NOTE | 2021-02-27 02:05 | NUR ---
PATIENT PLACED ON BEDPAN, NEW DRAW SHEET AND PADS PLACED.
--- NOTE | 2021-02-27 02:57 | NUR ---
REASSESSMENT COMPLETED. VSS. PATIENT TURNED AND REPOSITIONED IN BED.
--- NOTE | 2021-02-27 04:22 | NUR ---
LAB AT ROOM, MORNING LABS DRAWN AND SENT TO LAB.
[2021-02-27 04:39] LABS: BASOPHILS 0.2 % (0-2); EOSINOPHILS 4.5 % (0-7); HEMATOCRIT 27.3 % (36.0-48.0); HEMOGLOBIN 8.5 g/dL (12-16); IMMATURE GRANULOCYTES 0.6 % (0-5); LYMPHOCYTE ABS# 1.22 10x3/uL (1.18-3.74); LYMPHOCYTES 26.1 % (15-50); MCH 27.7 pg (26.0-34.0); MCHC 31.1 g/dL (31.0-37.0); MCV 88.9 fL (80.0-100.0); MEAN PLATELET VOLUME 12.6 fL (7.4-10.4); NEUTROPHIL ABS# 2.64 10x3/uL (1.56-6.13); NEUTROPHILS 56.6 % (40-80); PLATELET COUNT 153 10x3/uL (130-400); RBC 3.07 10x6/uL (4.00-5.40); RDW 18.9 % (11.5-14.5)
[2021-02-27 04:52] LABS: INR 1.57 (0.85-1.17); PROTIME 17.4 SECONDS (11.6-15.0)
[2021-02-27 04:53] LABS: WBC 4.7 10x3/uL (4.8-10.8)
[2021-02-27 05:07] LABS: BILIRUBIN - TOTAL 0.21 mg/dL (0.2-1.3); CALCIUM 8.1 mg/dL (8.5-10.1); CARBON DIOXIDE 21.6 mmol/L (21.0-32.0); POTASSIUM - SERUM 3.6 mmol/L (3.5-5.1); PROTEIN - SERUM 6.3 g/dL (6.4-8.2)
--- NOTE | 2021-02-27 05:35 | NUR ---
PATIENT BLOOD SUGAR 52 PER MORNING LABS, PATIENT CONFUSED AND REFUSING TO DRINK ORANGE JUICE OR EAT APPLE SAUCE, IV DEXTROSE 12.5 GM IVP WITH NS FLUSH.
--- NOTE | 2021-02-27 05:45 | NUR ---
RECHECKED BLOOD SUGAR WITH FSBS - 185 MG/DL. VSS.
--- NOTE | 2021-02-27 06:14 | NUR ---
CALLED [facility] OFFICE FOR ON-CALL PHYSICIAN TO CALL REGARDING PATIENTS LOW BLOOD SUGAR. DR. HENRY RETURNS CALL AND TO CHANGE IV FLUID FROM 1/2NS TO D5NS AT 100 ML/HR.
--- NOTE | 2021-02-27 09:37 | OP ---
PATIENT NAME: HECTOR HAMPTON MEDICAL RECORD: [id number] :34 LOCATION:[id number] ADMISSION DATE:02/23/21 SURGEON: AIDAN GRIFFITH MD DATE OF OPERATION: 02/26/2021 SURGEON: Aidan Griffith MD PROCEDURE PERFORMED: Insertion of single chamber permanent pacemaker. PREOPERATIVE DIAGNOSES: Symptomatic bradycardia and atrial fibrillation. POSTOPERATIVE DIAGNOSES: Symptomatic bradycardia and atrial fibrillation. ANESTHESIA: Monitored anesthesia care. ESTIMATED BLOOD LOSS: 5 cc. COMPLICATIONS: None. SPECIMENS: None. CONDITION: Stable. DISPOSITION: CV-ICU. OPERATIVE FINDINGS: Good pacing and sensing thresholds and no evidence of pneumothorax, no evidence of ventricular pacing at 5 volts. INDICATION: Severe bradycardia and atrial fibrillation with external pacemaker application and use. PROCEDURE IN DETAIL: The patient was brought to the operating suite, sedated. Chest was prepped and draped. A 1% Xylocaine was used to anesthetize the right anterior chest and a subcutaneous pocket was created. Right subclavian vein was cannulated with a single stick and guidewire was easily passed. The dilator and introducer system were placed and the lead was placed into the right atrium and fell into the right ventricle. Lead was directed apically, single screw in lead was used. Initial thresholds were poor; therefore it was replaced to a different site. Good pacing thresholds. The lead was sutured in place. Thorough antibiotic irrigation of the pocket was made and the patient had good hemostasis. The pacemaker lead was connected to the generator with appropriate pacing. Thorough antibiotic irrigation was performed. The generator was sewn into place. The wound was closed with 3 layers and Dermabond on the skin. The patient is stable to ICU. TRANSINT:[id number] Voice Confirmation ID: [id number] DOCUMENT ID: [id number] OPERATIVE REPORT [id number] HECTOR HAMPTON AIDAN GRIFFITH MD at 0937 CC: QUINTON MCCOY M.D. and CHIKIS HENRY MD [id number] DICTATION DATE: 02/26/21 1512 CONTRACTING ANALYST: 02/26/21 2343 ADM IN [facility] [address] [place] [address]
[2021-02-28] VITALS (58 sets, daily range): BP systolic 76–129; BP diastolic 36–96
[2021-02-28 06:25] LABS: ALBUMIN 1.8 g/dL (3.4-5.0); ANION GAP 17.5 mmol/L (8-16); BILIRUBIN - TOTAL 0.15 mg/dL (0.2-1.3); CALCIUM 7.8 mg/dL (8.5-10.1); CARBON DIOXIDE 18.8 mmol/L (21.0-32.0); CREATININE - SERUM 2.2 mg/dL (0.6-1.3); POTASSIUM - SERUM 3.3 mmol/L (3.5-5.1)
[2021-02-28 07:19] LABS: BASOPHILS 0 % (0-2); EOSINOPHILS 3.4 % (0-7); HEMATOCRIT 26.7 % (36.0-48.0); HEMOGLOBIN 8.6 g/dL (12-16); IMMATURE GRANULOCYTES 0.4 % (0-5); LYMPHOCYTE ABS# 0.94 10x3/uL (1.18-3.74); LYMPHOCYTES 19.8 % (15-50); MCH 28.4 pg (26.0-34.0); MCHC 32.2 g/dL (31.0-37.0); MCV 88.1 fL (80.0-100.0); MONOCYTES 9.9 % (2-11); NEUTROPHIL ABS# 3.15 10x3/uL (1.56-6.13); NEUTROPHILS 66.5 % (40-80); PLATELET COUNT 141 10x3/uL (130-400); RBC 3.03 10x6/uL (4.00-5.40); RDW 19.2 % (11.5-14.5); WBC 4.7 10x3/uL (4.8-10.8)
--- NOTE | 2021-02-28 07:30 | NUR ---
PAGED DR HENRY AT 2128, WAITING FOR CALL BACK REGARDING CVC PLACEMENT.
--- NOTE | 2021-02-28 08:11 | NUR ---
0730-NO FUNCTIONING IV AND NEOSYNEPHRINE OFF AT THIS TIME-ATTEMPT IN PROGRESS FOR PERIPHERAL IV RESTART-AFIB WITH 20% PACED- 0745-ATTEMPT CONTINUED WITH MCKAYLA NOT INFUSING -CALL PLACED TO [facility] FOR CENTRAL LINE PLACEMENT- 0800-FOLLOWING 5 IV ATTEMPTS-L STILL IN SITU IV ASPIRATED FOR BLOOD RETURN AND FLUSH-BOTH POSITIVE -AND CONFIRMED BY 2 RN'S-NEOSYNEPHRINE GTT RESTARTED AT 0.9-NIBP-78 SYS--REPEATED 105 SYS R RADIAL -R AC IV LEAKING AT INSERTION SITE AND NO BLOOD ASPIRATED-CATH REMOVED WITH TIP INTACT 809-DR DESOUZA AT BEDSIDE -REQUESTED CENTRAL LINE PLACEMENT FOR USE OF PRESSORS-DR BONY WONG
--- NOTE | 2021-02-28 11:36 | NUR ---
09-DR LOVETT AT BEDSIDE -PLACEMENT OF CVL-PT PLACED IN [facility]-NOTED DECREASED MENTATION-NODDED WITH NO VOCAL-DURING PLACEMENT -RAPID MOVEMENT TO R ARM-ATTEMPTING TO GRAB LINE--L ARM FLACCID-NO VOCAL 929-COMPLETED CVL-DAUGHTER AT BEDSIDE-STATED NOTED HER CONFUSION ON -STATED DID SPEAK-NO VOCAL-L ARM REMAINS FLACCID [id number] DESOUZA NOTIFIED OF CHANGES VIA TELEPHONE REPORT-REQUESTED TO SPEAK TO DAUGHTER -SAME BROUGHT TO PHONE 50-STAT CT OHEAD-NO CONTRAST--PLACEMENT OF NGT AND DIETITION TO ADDRESS FEEDINGS 1000-PORT CXR IN PROGRESS 1015-L NARE NGT PLACED FOLOWING 2 ATTEMPTS-16F DECREASED TO 14F ON SECOND ATTEMPT WITHOUT DIFFICULTY-
--- NOTE | 2021-02-28 12:19 | NUR ---
Nutrition Consult/Reassessment: POD 1 PPM placement. AMS. Noted NGT placed. Received consult to address feedings. Diet: NPO Wt: 171# (02/28)IBW: 110# Labs noted: K+ 3.3, BUN 37, Cre 2.2, GFR 37, Glu 122, Ca 7.8, Alb 1.8, Lipase 2073 Meds noted: Florajen, Remeron, Protonix, D5NS @ 100 Est needs: 0604-7825 kcal/day (25-30 kcal/kg IBW) 45-60 g protein/day (0.6-0.8 g/kg actual BW) 1604-0117 mL fluid/day (1 mL/kcal) or per MD Nutrition Diagnosis: Inadequate energy intake R/T AMS, decreased ability to consume sufficient energy AEB NPO status, NGT placed for nutrition support. Nutrition Goals: -Tolerate TF at goal rate within 48 hrs. -Stable wt. Nutrition Intervention: -Start Osmolite 1.5 @ 20 mL/hr and increase by 10 mL/hr q 6 hrs to goal rate of 35 mL/hr + H2O flushes 25 mL q hr or per MD; provides 1260 kcal (84-101% est needs) & 53 g protein (95-126% est needs) daily. -RD follow-up: 03/03
--- NOTE | 2021-02-28 19:36 | NUR ---
1745-RETURNED TO QW32-PNAG 2302-NO VERBAL-NODS TO QUESTIONS-L ARM NOTABLY WEAKER THAN R -NO URINARY INCONTINENCE NOTED 1800-GRAND DAUGHTER AT BEDSIDE-PT DOES NOT SEEM TO RECOGNIZE SAME-NO VERBAL EFFORT-PACED ON MONITOR
[2021-03-01] VITALS (87 sets, daily range): BP systolic 81–118; BP diastolic 31–81
[2021-03-01 04:49] LABS: BASOPHILS 0.2 % (0-2); EOSINOPHILS 1.8 % (0-7); HEMATOCRIT 25.3 % (36.0-48.0); IMMATURE GRANULOCYTES 0.8 % (0-5); LYMPHOCYTE ABS# 0.37 10x3/uL (1.18-3.74); LYMPHOCYTES 7.2 % (15-50); MCH 27.9 pg (26.0-34.0); MCHC 31.6 g/dL (31.0-37.0); MCV 88.2 fL (80.0-100.0); MONOCYTES 10.3 % (2-11); NEUTROPHIL ABS# 4.09 10x3/uL (1.56-6.13); NEUTROPHILS 79.7 % (40-80); PLATELET COUNT 119 10x3/uL (130-400); RBC 2.87 10x6/uL (4.00-5.40); RDW 19.2 % (11.5-14.5); WBC 5.1 10x3/uL (4.8-10.8)
[2021-03-01 04:59] LABS: ALBUMIN 1.7 g/dL (3.4-5.0); ANION GAP 13.4 mmol/L (8-16); BILIRUBIN - TOTAL 0.17 mg/dL (0.2-1.3); CALCIUM 7.4 mg/dL (8.5-10.1); CARBON DIOXIDE 21.6 mmol/L (21.0-32.0); CREATININE - SERUM 2.3 mg/dL (0.6-1.3); MAGNESIUM - SERUM 1.9 mg/dL (1.8-2.4); PROTEIN - SERUM 5.6 g/dL (6.4-8.2)
--- NOTE | 2021-03-01 09:06 | NUR ---
TRANSFERED BACK TO ICU ON 2ND FLOOR. BAUTISTA HAMPTON DAUGHTER OF PATIENT NOTIFIED.
--- NOTE | 2021-03-01 14:28 | NUR ---
0930 REPORT RECIEVED AND CARE ASSUMED OF PATIENT.. PT IS OBTUNDED ONLY ROUSING TO VERY NOXIOUS STIMULI EX NT SUCTIONING... PACED RYTHM ON HEART MONITOR PUREWICK URINE COLLECTION SYSTEM ON URINE IN CANNISTER DK AND CONCENTRATED IN APPEARANCE.. CVL LEFT IJ WITH MCKAYLA DRIP INFUSING AT 0.1MCG/KG/MIN AND D5NS AT 100CC/HR.. SEEE FLOW SHEET FOR BP 1015 DAUGHTER IN TO SEE PATIENT.. UPDATE IS GIVEN.. 1035 DR FLEMING IN TO SEE PATIENT.. SPOKE WITH REJI AT THE BEDSIDE... 1100 PT WITH INCONTINENT STOOL.. CHG BATH GIVEN AND LINENE CHANGE IS DONE.. NEW PUREWICK PLACED... 1230 TUBE FEEDING INCREASED TO 35CC/HR TO MEET GOAL WITH 25CC/HR H2O FLUSH... 1400 UPDATE GIVEN TO DAUGHTER PT REMAINS WITHOUT CHANGED IN STATUS.. REMAIN ON MCKAYLA RATE IS UNCHANGED
--- NOTE | 2021-03-01 16:23 | NUR ---
1500 UNABLE TO OBTAIN TEMPRATURE ORALLY, AXILLARY, OR RECTAL... WARMING BLANKET ON PATIENT... FAMILY CONTINUES AT BEDSIDE... 1600 I AND O DONE
--- NOTE | 2021-03-01 17:26 | NUR ---
1700 GRANDDAUGHTER AT THE BEDSIDE.. UPDATE IS GIVEN.. NOTED AT THIS TIME THAT PATIENTS REPIRATIONS HAVE BECOME SOMEWHAT GUPPYLIKE.. SAT REMAINS > 92 O2 ON AT 2 LNC.. CONTINUES OBTUNDED .. WARMING BLANKET ON STILL UNABLE TO GET TEMP TO REGISTER...
--- NOTE | 2021-03-01 20:00 | NUR ---
PT SUCTIONED, UPON ORAL INSPECTION NGT FOUND TO BE COILED IN MOUTH, UPON ASCULATION, NO AIR HEARD IN ABDOMEN, TUBE FEEDING TURNED OFF, NGT REPLACED WITH BILE/TF RETURN, AIR ASCULATED IN ABDOMEN, NGT SECURED. KUB ORDERED TO CONFIRM NGT PLACEMENT, CHEST XRAY ORDERED FOR POSSIBLE ASPIRATION. ESTEVES CATH PLACED WITH TEMP PROB, CURRENT BLADDER TEMP 95.3F, BEIRHUGGER TURNED ON HIGH OVER PT. YELLOW LIQUID STOOL CLEANED, CHG BATH GIVEN AND COMPLETE LINEN CHANGE PREFORMED DUE TO PT SOILED. WILL HOLD 2100 MEDS AND TUBE FEEDING UNTIL NGT PLACEMENT CONFIRMED. DR HOWARD REQUESTED NEURONTIN AND REMRON BE HELD DUE TO PT OBTUNDED.
--- NOTE | 2021-03-01 20:55 | NUR ---
DR HOWARD RETURNED PAGED TO REPORT PT WITH WET LUNGS SOUNDS AND WHEEZING THROUGHOUT, ALSO AUXILLARY TEMP OF 90.1, ORDER TO PLACE TEMP PROB ESTEVES, GIVE ONE TIME DOSE 20 IVP LASIX, D/C D5NS AND RENEW PHENYLEPHRINE GTT. DISCUSSED PT LABS AND INTAKE/OUTPUT.
[2021-03-02] VITALS (21 sets, daily range): BP systolic 56–112; BP diastolic 36–97
--- NOTE | 2021-03-02 00:42 | NUR ---
RADIOLOGY REPORT CONFIRMED THAT TIP OF NGT IN SATISFACTORY POSTION IN STOMACH, TUBE FEEDING RE-STARTED. CVICU AND MICU CHECKED FOR PT NON-ADMIN MEDS, UNABLE TO LOCATE, WILL HOLD DUE TO MEDICATION NOT AVAILIBLE.
--- NOTE | 2021-03-02 01:59 | NUR ---
PT ESTEVES TEMP PROB IS 98F, FAN AND TEMP TURNED DOWN TO MEDIUM. LITTLE URINE OUTPUT SINCE IVP LASIX, ESTEVES EMPTYING WITHOUT COMPLICATION. ORAL CARE GIVEN TO PT, PT SUCKS ON SWABS AND SUCTION, NO ACTIVE MOVEMENT NOTED TO ARMS OR LEGS, NO VERBALIZATIONS NOTED. LUNG SOUNDS REMAIN COURSE, VERY LITTLE OUTPUT WITH NT SUCTIONING.
[2021-03-02 02:35] LABS: BILIRUBIN NEGATIVE (NEGATIVE); KETONE SMALL mg/dL (NEGATIVE); NITRITE NEGATIVE (NEGATIVE); UROBILINOGEN NORMAL mg/dL (< 2)
--- NOTE | 2021-03-02 03:21 | NUR ---
PT BEIRHUGGER DECREASED TO LOW SETTINGS, CURRENT TEMP 98.8F.
[2021-03-02 04:26] LABS: BASOPHILS 0.2 % (0-2); EOSINOPHILS 0.2 % (0-7); HEMATOCRIT 24.3 % (36.0-48.0); HEMOGLOBIN 7.7 g/dL (12-16); IMMATURE GRANULOCYTES 0.6 % (0-5); LYMPHOCYTE ABS# 1.06 10x3/uL (1.18-3.74); LYMPHOCYTES 21.5 % (15-50); MCH 27.8 pg (26.0-34.0); MCHC 31.7 g/dL (31.0-37.0); MCV 87.7 fL (80.0-100.0); MEAN PLATELET VOLUME 12.9 fL (7.4-10.4); MONOCYTES 16.4 % (2-11); NEUTROPHIL ABS# 3.02 10x3/uL (1.56-6.13); NEUTROPHILS 61.1 % (40-80); PLATELET COUNT 124 10x3/uL (130-400); RBC 2.77 10x6/uL (4.00-5.40); RDW 19.4 % (11.5-14.5); WBC 4.9 10x3/uL (4.8-10.8)
[2021-03-02 04:42] LABS: ALBUMIN 1.7 g/dL (3.4-5.0); ANION GAP 17.1 mmol/L (8-16); BILIRUBIN - TOTAL 0.2 mg/dL (0.2-1.3); CALCIUM 7.6 mg/dL (8.5-10.1); CARBON DIOXIDE 18.4 mmol/L (21.0-32.0); PROTEIN - SERUM 5.6 g/dL (6.4-8.2)
[2021-03-02 04:48] LABS: CREATININE - SERUM 2.9 mg/dL (0.6-1.3); POTASSIUM - SERUM 3.5 mmol/L (3.5-5.1)
--- NOTE | 2021-03-02 05:36 | NUR ---
PT BP DECREASING, WHILE TITRATING PHENYLEPHRINE GTT UP, LISTED MAX DOSE ON DEC 0.9MCG/KG/MIN, PIPELINE PHARMACIST WENDY Degroot VERIFIED THAT DRIP IS 20MG IN 100ML NS, WITH MAX DOSE OF 200MCG/KG/MIN, VERIFIED PUMP SET CORRECTLY AND MIXED GTT. PT BP INCREASING WNP.
--- NOTE | 2021-03-02 07:17 | NUR ---
ASSESSED PT AT 0540, PT BREATHING AT THAT TIME. @0621, PT RR 0 ON MONITOR, UNCOVERED PT AND FOUND PT NOT BREATHING, CODE BLUE CALLED AND ACLS BEGAIN, SEE MEDS GIVEN PER CODE SHEET. PT DAUGHTER ILENE HAMPTON CALLED AND DR Zane MCGUIRE SPOKE WITH PT DAUGHTER AND CODE WAS STOPPED. POST MORTEM CARE PREFORMED. DR HAYNES AND DR HOWARD CALLED AND NOTIFIED OF PT . PT SON AND DAUGHTER IN ROUTE TO HOSPTIAL.
--- NOTE | 2021-03-02 09:46 | NUR ---
0740 FAMILY IN AT BEDSIDE.. 0845 HOME INFO OBTAINED FROM FAMILY.. 0855 HAMLIN CALLED AND PT IS DECLINED DUE TO AGE.. 0900 [facility] CALLED FOR BODY CARBIDE OPERATOR.. 0945 FAMIY REMAINS AT BEDSIDE.. HOME HERE SPOKE WITH FAMILY... 0947 FAMILY GONE.. AND PT PICKED UP BY HOME REP
== END 2021-03-02 09:52 | DRG 981 ==
LOC: D.ER 17:14 → D.CVICU 20:33 → D.ICU 20:33 → D.MS 20:33 → D.ICU 02-26 03:33 → D.CVICU 02-26 13:38 → D.ICU 02-28 11:39 → D.CVICU 02-28 17:22 → D.ICU 03-01 09:07
PROVIDERS: Family Medicine; Thoracic Surgery (Cardiothoracic Vascular Surgery); ADMIT Family Medicine; ATTEND Family Medicine
PROC: 02H63JZ Insertion of Pacemaker Lead into Right Atrium, Percutaneous Approach (ICD-10-PCS; 2021-02-26)
PROC: 0JH604Z Insertion of Pacemaker, Single Chamber into Chest Subcutaneous Tissue and Fascia, Open Approach (ICD-10-PCS; principal; 2021-02-26 12:30)
PROC: 05HN33Z Insertion of Infusion Device into Left Internal Jugular Vein, Percutaneous Approach (ICD-10-PCS; 2021-02-28)
PROC: 0BH17EZ Insertion of Endotracheal Airway into Trachea, Via Natural or Artificial Opening (ICD-10-PCS; 2021-03-02)
DX: K80.00 Calculus of gallbladder with acute cholecystitis without obstruction (principal); K85.90 Acute pancreatitis without necrosis or infection, unspecified; E87.0 Hyperosmolality and hypernatremia; N17.9 Acute kidney failure, unspecified; E86.0 Dehydration; I48.91 Unspecified atrial fibrillation; E66.01 Morbid (severe) obesity due to excess calories; Z68.28 Body mass index [BMI] 28.0-28.9, adult; B02.9 Zoster without complications; I95.9 Hypotension, unspecified; R00.1 Bradycardia, unspecified; K57.90 Diverticulosis of intestine, part unspecified, without perforation or abscess without bleeding; R29.818 Other symptoms and signs involving the nervous system; I12.9 Hypertensive chronic kidney disease with stage 1 through stage 4 chronic kidney disease, or unspecified chronic kidney disease; N18.9 Chronic kidney disease, unspecified